=== PATIENT | male | born 1960 | race Caucasian/White ===

== ENCOUNTER → 2016-10-01 | Outpatient (CLI) | payer OTHER ==
[~2016-10-01] MED LIST: ACHYD1T PO; AMLO10TA82 PO; ASPI-860 PO; LISI1TAB10 PO; METF500T4 PO; OMEG-7 PO; OMEP20TA PO; SIMV40TA PO
== END ==
LOC: LAB 11:00
PROVIDERS: ATTEND Physician Assistant
DX: R35.0 Frequency of micturition (principal)
CPT/HCPCS: 36415; 83036; 84153

== ENCOUNTER → 2016-11-01 | Outpatient (CLI) | payer OTHER ==
--- NOTE | 2016-11-01 11:43 | Diagnostic Imaging Report ---
PROCEDURE: CT abdomen and pelvis with and without contrast. TECHNIQUE: Precontrast acquisitions were acquired through the abdomen and pelvis. Multiple contiguous axial images were obtained through the abdomen and pelvis after the administration of intravenous contrast. CT urography was performed. INDICATION: Elevated PSA. Hematuria. FINDINGS: Instantly noted is a mass in the right posterior medial hemithorax, posterior mediastinum measuring 3.7 x 6.1 x 5.2 cm. This is smoothly marginated. It does not extend into the posterior mediastinal fat or entering the neural foramina. It does not enhance with intravenous contrast. Precontrast CT number is 24. It is partially visualized on a lumbar spine radiograph from 12/29/2007 and shows no obvious change in size. The liver shows diffuse steatosis. No focal hepatic lesion is seen. The gallbladder is negative. The bile ducts are negative. The spleen and adrenals are negative. The pancreas is within normal limits. Kidneys are normal in size. There is no bowel wall thickening demonstrated. Sigmoid diverticula are present. A 3 mm nonobstructing stone is present in the lower pole of the left kidney. No cortical renal juliocesar is seen. There is no soft tissue density filling defect in the pelvicalyceal systems or ureters. No hydronephrosis is identified. Right para-midline dependent urinary bladder has a 9 mm calcification consistent with a stone. At the more inferior anterior portion of the urinary bladder junction with prostate, an additional 4 mm calcification is present that might be additional stone. The prostate gland is diffusely enlarged measuring about 6 x 5.3 x 5.2 cm. It indents the base of the urinary bladder. Do not see a definite urinary bladder filling defect or neoplasm. The seminal vesicles are negative. No adenopathy is seen in the abdomen, pelvis, or retroperitoneum. Inguinal lymph nodes are negative. Postoperative lumbar laminectomy and fusion changes are identified. Small bone island is seen in the left ischium. IMPRESSION: 1. Urinary bladder calculi. Small nonobstructing left renal calculus. 2. Prostatic enlargement. 3. Right paraspinal mass that has features of a cyst. A benign developmental cyst may produce this appearance although a cystic schwannoma might produce this appearance. It is probably unchanged from 12/29/2007. Suggest assessment with MRI or followup with CT in six months. 4. Nonuniform hepatic steatosis. Dictated by: Dictated on workstation # [id number]
== END ==
LOC: RAD 09:45
PROVIDERS: ATTEND Surgery
DX: R97.20 Elevated prostate specific antigen [PSA] (principal); R31.9 Hematuria, unspecified; N40.0 Benign prostatic hyperplasia without lower urinary tract symptoms; K76.0 Fatty (change of) liver, not elsewhere classified
CPT/HCPCS: 74178